=== PATIENT | male | born 1995 | race Caucasian/White ===

== ENCOUNTER 2018-06-07 11:00 | Emergency (ER) | payer MEDICAID ==
[~2018-06-07] VITALS: Wt 58.2 kg
[2018-06-07] MEDS ORDERED: ACYC400T2 PO (14:15)
--- NOTE | 2018-06-07 14:22 | ERD ---
ER Documentation Chief Complaint Chief Complaint continued sx of chlamydia: p tx w doxycycline HPI 23-year-old male presents the ED complaining of penile pain. Patient states that on May 02, 2018 he was treated with ceftriaxone and doxycycline from his [facility] when he was living in [place]. Patient states that when he was at the clinic he had penile discharge. He was tested for STDs which came back positive for both gonorrhea and chlamydia. Patient states he completed a 10-day course of doxycycline. He states the pain resolved for "a few days "however the pain returned shortly after. The last few days, he describes a sharp, shooting pain in the shaft of his penis and into the head. Denies any penile discharge at this time. Patient denies fevers, chills or abdominal pain. ROS All systems reviewed and are negative except as per history of present illness. Medications Home Meds Active Scripts Acyclovir* (Acyclovir*) 400 Mg Tablet, 400 MG PO TID for 7 Days, TAB Prov:FREDO HINES PA-C 06/07/18 Allergies Allergies: Coded Allergies: No Known Allergy (Unverified , 06/07/18) Physical Exam Vitals Vital Signs Date Temp Pulse Resp B/P (MAP) Pulse Ox O2 O2 Flow FiO2 Time Delivery Rate 06/07/18 99.6 88 22 130/91 99 12:34 (104) Physical Exam GENERAL: Well-developed, well-nourished male. Appears in no acute distress. HEAD: Normocephalic, atraumatic. EYES: Pupils are equally reactive bilaterally. EOMs grossly intact. No conjunctival erythema. NECK: Supple. No meningismus. Normal range of motion of the neck. LUNG: Clear to auscultation bilaterally. No rhonchi, wheezing, rales or coarse breath sounds. HEART: Regular rate and rhythm. No murmurs, rubs or gallops. MALE GENITALIA: Male Lloyd Easley present during this part of exam. Normal, circumcised penis without masses or deformities. 4 erythematous, vesicular lesions located on the dorsal aspect of the shaft. One erythematous, circular lesion located near the urethra opening. no penile discharge noted. Normal scrotum without any masses, tenderness, swelling or erythema. No phimosis, paraphimosis, or priapism. EXTREMITIES: Equal pulses bilaterally. No peripheral clubbing, cyanosis or edema. No unilateral leg swelling. NEUROLOGIC: Alert and oriented. Moving all four extremities without any difficulty. Normal speech. Steady gait. SKIN: Normal color. Warm and dry. No rashes or lesions. Procedures/MDM MEDICAL DECISION MAKING: This is a 23-year-old male who presents the ER for concerns of penile pain times a few days. Vital signs were reviewed. Patient was afebrile. Patient was not hypoxic. Patient was recently treated for gonorrhea and chlamydia. Patient states he continues to have penile pain. On exam patient was noted to have vesicular lesions. Patient likely has genital herpes. Patient will be treated with acyclovir. Patient states this is the first time he has had such lesions. Patient was advised to follow-up with the primary care physician for additional STD testing. Unable to rule out syphilis, HIV, hepatitis B or hepatitis C at this time. Low suspicion for pyelonephritis, nephrolithiasis, appendicitis, epididymitis, urethritis, orchitis, balanitis, phimosis, priapism. Patient was nontoxic, [id number] prior to discharge. PRESCRIPTIONS: Acyclovir DISCHARGE: At this time, patient is stable for discharge and outpatient management. RICE therapy and ROM exercises were advised to avoid stiffness. I have instructed the patient to follow-up with his/her primary care physician in 1-2 days. I have discussed with the patient the possibility of needing to see an affirmative action specialist for further workup and imaging if the pain persists. I have instructed the patient to promptly return to the ER for any new or worsening symptoms including increased pain, swelling, redness, warmth or fever. The patient and/or family expressed understanding of and agreement with this plan. All questions were answered. Home care instructions were provided. Disclaimer: Inadvertent spelling and grammatical errors are likely due to EHR/dictation software use and do not reflect on the overall quality of patient care. Also, please note that the electronic time recorded on this note does not necessarily reflect the actual time of the patient encounter. Departure Diagnosis: Primary Impression: Herpes genitalis in men Condition: Stable Patient Instructions: Herpes Genitalis, Hsv: Type Ii Referrals: COMMUNITY CLINICS YOU HAVE RECEIVED A MEDICAL SCREENING EXAM AND THE RESULTS INDICATE THAT YOU DO NOT HAVE A CONDITION THAT REQUIRES URGENT TREATMENT IN THE EMERGENCY DEPARTMENT. FURTHER EVALUATION AND TREATMENT OF YOUR CONDITION CAN WAIT UNTIL YOU ARE SEEN IN YOUR DOCTORS OFFICE WITHIN THE NEXT 1-2 DAYS. IT IS YOUR RESPONSIBILITY TO MAKE AN APPOINTMENT FOR FOLOW-UP CARE. IF YOU HAVE A PRIMARY DOCTOR --you should call your primary doctor and schedule an appointment IF YOU DO NOT HAVE A PRIMARY DOCTOR YOU CAN CALL OUR PHYSICIAN REFERRAL HOTLINE AT IF YOU CAN NOT AFFORD TO SEE A PHYSICIAN YOU CAN CHOSE FROM THE FOLLOWING [facility] [address] [facility] [address] [facility] [address] [facility] [address] [facility] [address] [facility] [facility] [address] [facility]. [facility] YOU HAVE RECEIVED A MEDICAL SCREENING EXAM AND THE RESULTS INDICATE THAT YOU DO NOT HAVE A CONDITION THAT REQUIRES URGENT TREATMENT IN THE EMERGENCY DEPARTMENT. FURTHER EVALUATION AND TREATMENT OF YOUR CONDITION CAN WAIT UNTIL YOU ARE SEEN IN YOUR DOCTORS OFFICE WITHIN THE NEXT 1-2 DAYS. IT IS YOUR RESPONSIBILITY TO MAKE AN APPOINTMENT FOR FOLOW-UP CARE. IF YOU HAVE A PRIMARY DOCTOR --you should call your primary doctor and schedule and appointment IF YOU DO NOT HAVE A PRIMARY DOCTOR YOU CAN CALL OUR PHYSICIAN REFERRAL HOTLINE AT . IF YOU CAN NOT AFFORD TO SEE A PHYSICIAN YOU CAN CHOSE FROM THE FOLLOWING [facility] INSTITUTIONS: [facility] [address] [place] [address] [facility] [address] [place] [address] [facility] + [facility] [address] [place] [address] Additional Instructions: Call your primary care doctor TOMORROW for an appointment during the next 1-2 days.See the doctor sooner or return here if your condition worsens before your appointment time. FREDO HINES PA-C Jun 07, 2018 14:22
== END 2018-06-07 14:33 | disposition home or self-care (01) ==
LOC: FTE 11:00
DX: A60.02 Herpesviral infection of other male genital organs (principal)
CPT/HCPCS: 99283